=== PATIENT | male | born 1950 | race African-American/Black ===

== ENCOUNTER 2018-01-14 10:15 | Emergency (ER) | payer MEDICARE, OTHER ==
[~2018-01-14] VITALS: Ht 180.3 cm; Wt 81.6 kg
[2018-01-14 10:40] VITALS: BP 186/91
[2018-01-14] MEDS ORDERED: KETOROLAC TROMETH 60MG/2ML VIAL IM ONE (11:15)
== END 2018-01-14 12:40 | disposition home or self-care (01) ==
LOC: ER 10:15
DX: M25.512 Pain in left shoulder (principal); M79.602 Pain in left arm; F17.210 Nicotine dependence, cigarettes, uncomplicated; F12.10 Cannabis abuse, uncomplicated; I10 Essential (primary) hypertension
CPT/HCPCS: 73030; 93005; 96372; 99284; J1885

== ENCOUNTER 2018-01-17 10:21 | Emergency (ER) | payer MEDICARE, OTHER ==
[~2018-01-17] VITALS: Ht 180.3 cm; Wt 84.4 kg
[2018-01-17 11:25] VITALS: BP 161/87
== END 2018-01-17 13:13 | disposition home or self-care (01) ==
LOC: ER 10:21
DX: B02.9 Zoster without complications (principal); K21.9 Gastro-esophageal reflux disease without esophagitis; E78.5 Hyperlipidemia, unspecified; I10 Essential (primary) hypertension; F17.210 Nicotine dependence, cigarettes, uncomplicated; F12.10 Cannabis abuse, uncomplicated